=== PATIENT | male | born 1955 | race Caucasian/White ===

== ENCOUNTER 2021-04-30 21:04 | Observation (INO) ==
[2021-04-30] MEDS ORDERED: METOPROLOL TARTRATE 1 MG/ML VIAL IV STA (21:33)
[2021-04-30] MEDS ORDERED: NITROGLYCERIN 2% OINTMENT 30GM TUBE EXT STA (21:33)
[2021-04-30] MEDS ORDERED: ASPIRIN CHEW 324 MG PO STA (21:33)
[2021-04-30 21:51] LABS: Basophils # (auto) 0.07 K/uL (0-0.2); Basophils % (auto) 0.7 %; Eosinophils # (auto) 0.28 K/uL (0-0.5); Eosinophils % (auto) 2.7 %; Hematocrit (blood only) 50.8 % (42-52); Hemoglobin 17.3 g/dL (14.0-18.0); Immature Granulocytes # (auto) 0.02 K/uL (0.00-0.02); Immature Granulocytes % (auto) 0.2 %; Lymphocytes # (auto) 1.82 K/uL (1.2-3.4); Lymphocytes % (auto) 17.8 %; Mean Corpuscular Hemoglobin 33.5 pg (25-34); Mean Corpuscular Hgb Conc 34.1 g/dL (32-36); Mean Corpuscular Volume 98.4 fL (80-100); Mean Platelet Volume 10.1 fL (7.4-10.4); Monocytes # (auto) 1.19 K/uL (0.11-0.59); Monocytes % (auto) 11.7 %; Neutrophils # (auto) 6.82 K/uL (1.4-6.5); Neutrophils % (auto) 66.9 %; Platelet Count 235 K/uL (130-400); RDW Coefficient of Variation 14.1 % (11.5-14.5); RDW Standard Deviation 50.9 fL (36.4-46.3); Red Blood Count 5.16 M/uL (4.7-6.1)
--- NOTE | 2021-04-30 21:57 | Emergency Department Note ---
Impression & Plan Acute HI, Hypertension, Jaw pain, Elevated troponin ED Provider Note NAME: REE CARR AGE: 65 SEX: M : 1955 ARRIVES VIA: Walk-In INFORMANT: [Patient] ED PROVIDER(S): [Romain Dang MD] CHIEF COMPLAINT: Chest pain HISTORY OF PRESENT ILLNESS: The patient is a 65-year-old male presents to the ER with about 5 hours of jaw pain that is a 5/10. The pain started and stopped and then seemed to persist. His shoulders feel tight. He is not short of breath. No nausea or sweating. This all began as he was taking a drink. The patient states that he did golf within the last few days and had no difficulty. He has not any exertional chest pain or exertional jaw pain. Patient does smoke and has a family history of heart disease. The patient is visiting the area. He has no recollection of ever having an EKG before. The patient has been in baseline health. He has not had cough, cold or congestion. No fever. REVIEW OF SYSTEMS: See HPI for pertinent positives and negatives. A total of ten systems were reviewed and were otherwise negative. PMHx/PSHx: See Below SOCIAL HISTORY: See Below. PHYSICAL EXAM: GENERAL: Patient is in no acute distress. HEENT: No acute trauma, normocephalic atraumatic, mucous membranes moist, no nasal congestion, no scleral icterus. NECK: No stridor, no adenopathy, no meningismus, trachea is midline. LUNGS: Clear to auscultation bilaterally, no wheeze, no rhonchi, breath sounds equal. HEART: Without murmurs gallops or rubs, regular rate and rhythm. ABDOMEN: Soft, nontender, bowel sounds positive, no hernias, no peritonitis. EXTREMITIES: No cyanosis or edema, full range of motion of all the joints without pain or difficulty, no signs for acute trauma. NEUROLOGIC: Oriented x 3, no acute motor or sensory deficits, no focal weakness. SKIN: No rash, no jaundice, no diaphoresis. DIFFERENTIAL DIAGNOSIS: Cardiac ischemia, aortic dissection, pulmonary embolism, pneumothorax, pneumonia, pericarditis, myocarditis, esophageal rupture, GERD, cholecystitis, pancreatitis, musculoskeletal, as well as other pathologies. EMERGENCY DEPARTMENT COURSE/PROCEDURES: ECG: Indication was pain. The ECG shows a sinus rhythm with some PACs. The rate is 88. There is a right bundle branch block. There is upsloping of the initial portion of the T wave in the anterior and lateral leads. There is some very subtle ST elevation in the anterior leads. The QTc is 454. No old EKGs to use for comparison. Repeat EKG: Indication was chest pain. The ECG shows a normal sinus rhythm with a rate of 70. There is a right bundle branch block. The subtle ST elevation in the anterior leads has resolved. The upsloping T waves in the anterior lateral leads has resolved. QTc is 444. The ECG is improved compared to the earlier EKG. Continuous Cardiac Monitoring: An order was placed for continuous cardiac mo nitoring. The monitor shows a rate of 82 with normal sinus rhythm. Critical Care Note: I have personally spent 57 minutes of critical care time in the direct management of this patient. This includes bedside care, interpretation of diagnostic studies, and testing, discussion with consultants, patient, and family members, and other required patient management activities. This 57 minutes is in excess of all separately billable procedures. MEDICAL DECISION MAKING: There is no leukocytosis or concerning anemia. There is a normal platelet count. No coagulopathy. No significant electrolyte abnormality or kidney failure. No concerning liver enzyme elevation. No pancreatitis. Patient appeared to be in a euthyroid state. Covid test returned negative. Chest film did not show pneumonia or CHF. No mediastinal widening. ECG initially showed some findings concerning for the development of an HI, his EKG improved with aspirin, Lopressor and nitroglycerin paste. Cardiac enzyme testing does show an elevation to the troponin concerning for cardiac injury or strain. As noted above, the patient's initial EKG was a bit concerning although, it did not meet strict criteria for ST elevation HI. Patient was given oral aspirin, IV Lopressor and nitroglycerin paste. His pain improved but he still had some jaw discomfort. Repeat EKG showed improvement of his ST changes. I did speak with Dr. Ryan of cardiac intervention. With the patient's complaints, the ECG findings, the troponin elevation, it was felt prudent to call a heart alert. Patient was told the results of his findings and I did explain my concerns to him at length. Dr. Ryan did see the patient here in the ED. Patient will be transferred to the cardiac catheterization lab for potential cardiac intervention. Of note, I did order for IV morphine and IV Zofran as additional pain control. I did consult the on-call hospitalist. Past Med/Surg History Medical History ACS (acute coronary syndrome) HTN (hypertension) Surgical History (Updated 05/01/21 @ 01:47 by Sandy Horowitz DO) Total knee replacement status Social History Smoking Status: Current every day smoker Tobacco Type: Cigarettes Cigarettes Per Day: 14; Do You Dip or Chew Tobacco: No; Hx Alcohol Use: Yes Alcohol type: beer and hard liquor Hx Substance Use: No Preferred Language: Kyrgyz Communication Ability: Effective Team Driver Required: No Beliefs That Will Affect Care: None Current Living Situation: Spouse Other Information That Helps Us Care for You: No Feels Safe at Home: Yes Safety Concerns: Feels Safe At This Time Assistive Devices: Contacts Allergies Allergies Allergy/AdvReac Type Severity Reaction Status Date / Time Penicillins Allergy Intermediate Hives Verified 04/30/21 22:45 POLLEN Allergy Intermediate SNEEZING, Uncoded 04/30/21 22:45 CONGESTION Home Meds Home Medications Medication Instructions Recorded Confirmed ascorbic acid (vitamin C) 500 mg 500 mg PO DAILY 04/30/21 04/30/21 tablet (Vitamin C) aspirin 81 mg tablet,delayed 81 mg PO DAILY 04/30/21 04/30/21 release diphenhydramine HCl 25 mg capsule 0 mg PO DAILY 04/30/21 04/30/21 omeprazole 20 mg capsule,delayed 20 mg PO DAILY 04/30/21 04/30/21 release Results & Data (ED) Vital Signs Vital Signs - 24 hr 04/30/21 21:13 04/30/21 21:31 04/30/21 21:54 Temperature 36.1 C L Temperature Source Temporal Artery Scan Pulse Rate 98 H 77 82 Pulse Rate from SpO2 Sensor Respiratory Rate 18 Respiratory Effort / Characteristics Non-Labored Spontaneous Respiratory Depth Normal Blood Pressure 182/119 H 190/112 H 190/112 H Blood Pressure Mean 140 138 Pulse Oximetry 98 Oxygen Delivery Method Room Air Sepsis Recent Fever Within 48 Hours No Sepsis New/Unexplained Change in Mental Status No Sepsis Action Taken by Nursing No Action Required 04/30/21 21:55 04/30/21 22:16 04/30/21 22:31 Temperature Temperature Source Pulse Rate 73 77 75 Pulse Rate from SpO2 Sensor 73 78 75 Respiratory Rate Respiratory Effort / Characteristics Respiratory Depth Blood Pressure 159/93 H 138/91 154/91 H Blood Pressure Mean 115 106 112 Pulse Oximetry 98 96 96 Oxygen Delivery Method Sepsis Recent Fever Within 48 Hours Sepsis New/Unexplained Change in Mental Status Sepsis Action Taken by Nursing 04/30/21 22:45 04/30/21 23:02 04/30/21 23:21 Temperature Temperature Source Pulse Rate 75 77 Pulse Rate from SpO2 Sensor 76 78 Respiratory Rate Respiratory Effort / Characteristics Respiratory Depth Blood Pressure 169/92 H 136/60 Blood Pressure Mean 117 85 Pulse Oximetry 95 96 Oxygen Delivery Method Room Air Sepsis Recent Fever Within 48 Hours Sepsis New/Unexplained Change in Mental Status Sepsis Action Taken by Half-Way Medications Current Medication List: was personally reviewed by me Laboratory Data Attestation: I reviewed the patient's lab results. Result diagrams: 04/30/21 21:46 04/30/21 22:12 Lab Results 04/30/21 04/30/21 04/30/21 Range/Units 21:46 21:46 21:46 WBC 10.20 (4.8-10.8) K/uL RBC 5.16 (4.7-6.1) M/uL Hgb 17.3 (14.0-18.0) g/dL Hct 50.8 (42-52) % MCV 98.4 (80-100) fL MCH 33.5 (25-34) pg MCHC 34.1 (32-36) g/dL RDW Std Deviation 50.9 H (36.4-46.3) fL RDW Coeff of Katherine 14.1 (11.5-14.5) % Plt Count 235 (130-400) K/uL MPV 10.1 (7.4-10.4) fL Immature Gran % (Auto) 0.2 % Neut % (Auto) 66.9 % Lymph % (Auto) 17.8 % Stanley % (Auto) 11.7 % Eos % (Auto) 2.7 % Baso % (Auto) 0.7 % Neut # (Auto) 6.82 H (1.4-6.5) K/uL Lymph # (Auto) 1.82 (1.2-3.4) K/uL Stanley # (Auto) 1.19 H (0.11-0.59) K/uL Eos # (Auto) 0.28 (0-0.5) K/uL Baso # (Auto) 0.07 (0-0.2) K/uL Immature Gran # (Auto) 0.02 (0.00-0.02) K/uL PT Cancelled INR Cancelled APTT Cancelled PTT Ratio Cancelled Activ Coag Time Kaolin (94-140) SECONDS Sodium 135 L (136-145) mmol/L Potassium (3.5-5.1) mmol/L Chloride 106 (98-107) mmol/L Carbon Dioxide 24 (21-32) mmol/L Anion Gap 6.0 (3-11) BUN 15 (7-18) mg/dl Creatinine 1.36 (0.6-1.4) mg/dl Est Cr Clr Drug Dosing 83.2 ml/min Est GFR ( Amer) 63.3 ml/min Est GFR (Non-Af Amer) 54.6 ml/min BUN/Creatinine Ratio 11.1 (10-20) Glucose 112 H (70-99) mg/dl Calcium 8.8 (8.5-10.1) mg/dl Magnesium (1.8-2.4) mg/dl Total Bilirubin 0.5 (0.2-1) mg/dl AST (15-37) U/L ALT 38 (12-78) U/L Alkaline Phosphatase 110 (45-117) U/L Troponin I 0.512 H* (0-0.045) ng/ml Total Protein 8.0 (6.4-8.2) gm/dl Albumin 3.6 (3.4-5.0) gm/dl Globulin 4.4 H (2.5-4.0) gm/dl Albumin/Globulin Ratio 0.8 L (0.9-2) Lipase 140 (73-393) U/L TSH 2.160 (0.300-4.500) uIu/ml Specimen Hemolysis COVID-19 Eval Order SARS-CoV-2 (PCR) (Negative) 04/30/21 04/30/21 04/30/21 Range/Units 22:12 22:12 23:52 WBC (4.8-10.8) K/uL RBC (4.7-6.1) M/uL Hgb (14.0-18.0) g/dL Hct (42-52) % MCV (80-100) fL MCH (25-34) pg MCHC (32-36) g/dL RDW Std Deviation (36.4-46.3) fL RDW Coeff of Katherine (11.5-14.5) % Plt Count (130-400) K/uL MPV (7.4-10.4) fL Immature Gran % (Auto) % Neut % (Auto) % Lymph % (Auto) % Stanley % (Auto) % Eos % (Auto) % Baso % (Auto) % Neut # (Auto) (1.4-6.5) K/uL Lymph # (Auto) (1.2-3.4) K/uL Stanley # (Auto) (0.11-0.59) K/uL Eos # (Auto) (0-0.5) K/uL Baso # (Auto) (0-0.2) K/uL Immature Gran # (Auto) (0.00-0.02) K/uL PT 9.7 INR 1.0 APTT 27.3 PTT Ratio 1.0 Activ Coag Time Kaolin 274 H (94-140) SECONDS Sodium (136-145) mmol/L Potassium 4.1 (3.5-5.1) mmol/L Chloride (98-107) mmol/L Carbon Dioxide (21-32) mmol/L Anion Gap (3-11) BUN (7-18) mg/dl Creatinine (0.6-1.4) mg/dl Est Cr Clr Drug Dosing ml/min Est GFR ( Amer) ml/min Est GFR (Non-Af Amer) ml/min BUN/Creatinine Ratio (10-20) Glucose (70-99) mg/dl Calcium (8.5-10.1) mg/dl Magnesium 1.8 (1.8-2.4) mg/dl Total Bilirubin (0.2-1) mg/dl AST 30 (15-37) U/L ALT (12-78) U/L Alkaline Phosphatase (45-117) U/L Troponin I (0-0.045) ng/ml Total Protein (6.4-8.2) gm/dl Albumin (3.4-5.0) gm/dl Globulin (2.5-4.0) gm/dl Albumin/Globulin Ratio (0.9-2) Lipase (73-393) U/L TSH (0.300-4.500) uIu/ml Specimen Hemolysis COVID-19 Eval Order SARS-CoV-2 (PCR) (Negative) 04/30/21 04/30/21 Range/Units Unknown Unknown WBC (4.8-10.8) K/uL RBC (4.7-6.1) M/uL Hgb (14.0-18.0) g/dL Hct (42-52) % MCV (80-100) fL MCH (25-34) pg MCHC (32-36) g/dL RDW Std Deviation (36.4-46.3) fL RDW Coeff of Katherine (11.5-14.5) % Plt Count (130-400) K/uL MPV (7.4-10.4) fL Immature Gran % (Auto) % Neut % (Auto) % Lymph % (Auto) % Stanley % (Auto) % Eos % (Auto) % Baso % (Auto) % Neut # (Auto) (1.4-6.5) K/uL Lymph # (Auto) (1.2-3.4) K/uL Stanley # (Auto) (0.11-0.59) K/uL Eos # (Auto) (0-0.5) K/uL Baso # (Auto) (0-0.2) K/uL Immature Gran # (Auto) (0.00-0.02) K/uL PT INR APTT PTT Ratio Activ Coag Time Kaolin (94-140) SECONDS Sodium (136-145) mmol/L Potassium (3.5-5.1) mmol/L Chloride (98-107) mmol/L Carbon Dioxide (21-32) mmol/L Anion Gap (3-11) BUN (7-18) mg/dl Creatinine (0.6-1.4) mg/dl Est Cr Clr Drug Dosing ml/min Est GFR ( Amer) ml/min Est GFR (Non-Af Amer) ml/min BUN/Creatinine Ratio (10-20) Glucose (70-99) mg/dl Calcium (8.5-10.1) mg/dl Magnesium (1.8-2.4) mg/dl Total Bilirubin (0.2-1) mg/dl AST (15-37) U/L ALT (12-78) U/L Alkaline Phosphatase (45-117) U/L Troponin I (0-0.045) ng/ml Total Protein (6.4-8.2) gm/dl Albumin (3.4-5.0) gm/dl Globulin (2.5-4.0) gm/dl Albumin/Globulin Ratio (0.9-2) Lipase (73-393) U/L TSH (0.300-4.500) uIu/ml Specimen Hemolysis COVID-19 Eval Order Covid19 at [facility] SARS-CoV-2 (PCR) NEGATIVE (Negative) Administered Medications Sodium Chloride (Nss 1000ml) 1,000 mls @ 100 mls/hr IV .Q10H [facility] Stop: 05/01/21 07:59 Last Admin: 05/01/21 01:07 Dose: 100 mls/hr Documented by: [id number] Discontinued Medications Aspirin (Aspirin Chew 324 Mg) 324 mg PO NOW STA Stop: 04/30/21 21:34 Last Admin: 04/30/21 21:50 Dose: 324 mg Documented by: [id number] Fentanyl Citrate (Fentanyl Citrate 100 Mcg/2 Ml Vial) Confirm Administered Dose 100 mcg .ROUTE .STK-MED ONE Stop: 04/30/21 23:01 Last Admin: 05/01/21 00:31 Dose: 100 mcg Documented by: [id number] Fentanyl Citrate (Fentanyl Citrate 100 Mcg/2 Ml Vial) Confirm Administered Dose 100 mcg .ROUTE .STK-MED ONE Stop: 04/30/21 23:48 Last Admin: 05/01/21 00:32 Dose: 25 mcg Documented by: [id number] Heparin Sodium (Porcine) (Heparin (Porcine) 1000 Unit/Ml 10 Ml (Skirt Trimmer Use Only)) Confirm Administered Dose 10,000 units .ROUTE .STK-MED ONE Stop: 04/30/21 23:01 Last Admin: 05/01/21 00:31 Dose: 10,000 units Documented by: [id number] Heparin Sodium (Porcine) (Heparin (Porcine) 1000 Unit/Ml 10 Ml (Skirt Trimmer Use Only)) Confirm Administered Dose 10,000 units .ROUTE .STK-MED ONE Stop: 04/30/21 23:39 Last Admin: 05/01/21 00:32 Dose: Not Given Documented by: [id number] Heparin Sodium/Sodium Chloride (Heparin In Nss Infusion 1000 Unit/500 Ml (2 U/Ml) Bag) Confirm Administered Dose 3,000 units IV .[facility] ONE Stop: 04/30/21 23:01 Last Admin: 05/01/21 00:31 Dose: 3,000 units Documented by: [id number] Ioversol (Optiray 320 125ml) 120 ml IV ONCE ONE Stop: 04/30/21 22:38 Last Admin: 04/30/21 22:38 Dose: 120 ml Documented by: [id number] Metoprolol Tartrate (Metoprolol Tartrate 1 Mg/Ml Vial) 5 mg IV NOW STA Stop: 04/30/21 21:34 Last Admin: 04/30/21 21:54 Dose: 5 mg Documented by: [id number] Midazolam HCl (Midazolam Hcl 1 Mg/Ml 2ml Vial) Confirm Administered Dose 2 mg .ROUTE .[facility] ONE Stop: 04/30/21 23:01 Last Admin: 05/01/21 00:31 Dose: 2 mg Documented by: [id number] Midazolam HCl (Midazolam Hcl 1 Mg/Ml 2ml Vial) Confirm Administered Dose 2 mg .ROUTE .[facility] ONE Stop: 04/30/21 23:44 Last Admin: 05/01/21 00:32 Dose: 2 mg Documented by: [id number] Midazolam HCl (Midazolam Hcl 1 Mg/Ml 2ml Vial) Confirm Administered Dose 2 mg .ROUTE .[facility] ONE Stop: 05/01/21 00:02 Last Admin: 05/01/21 00:32 Dose: Not Given Documented by: [id number] Morphine Sulfate (Morphine Sulfate 4 Mg/Ml 1 Ml Carp\Vial) 4 mg IV NOW STA Stop: 04/30/21 22:04 Last Admin: 04/30/21 22:06 Dose: 4 mg Documented by: [id number] Nicardipine HCl (Nicardipine Hcl Inj 2.5 Mg/Ml 10 Ml Amp) Confirm Administered Dose 25 mg .ROUTE .[facility] ONE Stop: 04/30/21 23:01 Last Admin: 05/01/21 00:32 Dose: 25 mg Documented by: [id number] Nitroglycerin (Nitroglycerin 2% Ointment 30gm Tube) 2 inch EXT NOW STA Stop: 04/30/21 21:34 Last Admin: 04/30/21 21:49 Dose: 2 inch Documented by: [id number] Nitroglycerin/Dextrose (Nitroglycerin/D5w 100mcg/Ml 20ml Syr) Confirm Administered Dose 2,000 mcg .ROUTE .[facility] ONE Stop: 04/30/21 23:01 Last Admin: 05/01/21 00:32 Dose: 2,000 mcg Documented by: [id number] Ondansetron HCl (Ondansetron Inj 2 Mg/Ml 2 Ml Vial) 4 mg IV NOW STA Stop: 04/30/21 22:04 Last Admin: 04/30/21 22:07 Dose: 4 mg Documented by: [id number] Ticagrelor (Ticagrelor 90 Mg Tab) Confirm Administered Dose 180 mg PO .[employer] ONE Stop: 05/01/21 00:18 Last Admin: 05/01/21 00:32 Dose: 180 mg Documented by: [id number] Imaging Data Attestation: I personally reviewed and interpreted this imaging study as follows: My Impression: Chest x-ray: There is no mediastinal widening, pneumonia or pneumothorax per my review. The lungs appear clear. Discharge Plan Visit Data Chief Complaint: Cardiac Assessment Stated Complaint: CHEST TIGHTNESS, JAW PAIN ED Provider: Romain Dang Discharge Problem: Acute HI, Hypertension, Jaw pain, Elevated troponin Patient Disposition: Admitted As Inpatient Condition: Fair Discharge Instructions Interventions: ED Discharge Assessment Last Done: 04/30/21 23:21
[2021-04-30] MEDS ORDERED: ONDANSETRON INJ 2 MG/ML 2 ML VIAL IV STA (22:03)
[2021-04-30] MEDS ORDERED: MoRPHine SULFATE 4 MG/ML 1 ML CARP\\VIAL IV STA (22:03)
[2021-04-30 22:20] LABS: Albumin Level 3.6 gm/dl (3.4-5.0); BUN Creatinine Ratio 11.1 (10-20); Calcium 8.8 mg/dl (8.5-10.1); Creatinine Clr Calc Pharmacy 83.2 ml/min; Est GFR (African American) 63.3 ml/min; Est GFR (Non-African American) 54.6 ml/min
[2021-04-30 22:26] LABS: Albumin Globulin Ratio 0.8 (0.9-2); Bilirubin,Total 0.5 mg/dl (0.2-1); Globulin 4.4 gm/dl (2.5-4.0); Thyroid Stimulating Hormone 2.16 uIu/ml (0.300-4.500); Troponin I 0.512 ng/ml (0-0.045)
[2021-04-30] MEDS ORDERED: OPTIRAY 320 125ml IV ONE (22:37)
[2021-04-30 22:41] LABS: Partial Thromboplastin Time 27.3 Seconds (21.0-31.0); Prothrombin Time 9.7 Seconds (9.0-12.0)
[2021-04-30 22:56] LABS: Potassium 4.1 mmol/L (3.5-5.1)
[2021-04-30] MEDS ORDERED: NITROGLYCERIN/D5W 100MCG/ML 20ML SYR ONE (23:00)
[2021-04-30] MEDS ORDERED: fentaNYL citrate 100 MCG/2 ML VIAL ONE ×2 (23:00→23:47)
[2021-04-30] MEDS ORDERED: MIDAZOLAM HCL 1 MG/ML 2ML VIAL ONE ×2 (23:00→23:43)
[2021-04-30] MEDS ORDERED: HEPARIN (PORCINE) 1000 UNIT/ML 10 ML (CATH LAB USE ONLY) ONE ×2 (23:00→23:38)
[2021-04-30] MEDS ORDERED: niCARdipine HCL INJ 2.5 MG/ML 10 ML AMP ONE (23:00)
[2021-04-30 23:05] LABS: Magnesium 1.8 mg/dl (1.8-2.4)
--- NOTE | 2021-04-30 23:19 | Pre Anesthesia Assessment ---
Date of Service April 30, 2021 Pre Sedation Assessment Vital Signs Temp Pulse Resp BP Pulse Ox 04/30/21 23:02 77 136/60 96 04/30/21 22:45 75 169/92 H 95 04/30/21 22:31 75 154/91 H 96 04/30/21 22:16 77 138/91 96 04/30/21 21:55 73 159/93 H 98 04/30/21 21:54 82 190/112 H 04/30/21 21:31 77 190/112 H 04/30/21 21:13 97.0 F L 98 H 18 182/119 H 98 Cardiovascular RRR, no murmur, no edema Respiratory normal respiratory effort, lungs clear to auscultation Pre-Sedation Airway Assessment Smoking Status: Current every day smoker Hx Sleep Apnea: No Hx Difficult Intubation: No Short, Thick Neck: No Thyromental Distance: > or= 3.5 Finger Breadths Oral Cavity: + WNL Mallampati Class: III ASA: ASA4 Procedure Planning Contraindications for Sedation: none Current Medications Reviewed: Yes Notes The planned sedation has been discussed with the patient. Informed Consent was obtained. I have identified the patient, determined the appropriateness of sedation and have assessed the patient immediately prior to the procedure. All medicine(s) and interventions are by my order.
--- NOTE | 2021-04-30 23:25 | Cardiology Consultation ---
Date of Consultation April 30, 2021 Assessment & Plan (1) ACS (acute coronary syndrome): Presentation consistent with high risk NSTEMI and recommend proceeding with urgent cardiac catheterization and possible primary PCI. No apparent contraindications to procedure. Discussed risks, benefits, alternatives of procedure with patient and they are willing to proceed. Further recommendations pending findings of coronary angiography. History of Present Illness History of Present Illness 65-year-old man here with acute chest pain and ECG concerning for high risk ACS. Patient seen urgently in the ED after heart alert activated due to elevated troponin, dynamic ST changes and persistent chest/jaw pain. No prior cardiac history. Cardiac risk factors include hypertension, obesity, ongoing tobacco abuse. Other medical issues include GERD. Patient is visiting area from [place] for an electrical conference. Has had stuttering chest/jaw pain since around 4 PM this afternoon. Around 730 after dinner pain became more severe and persisted. Denies similar symptoms in the past. Hypertensive on arrival to the 190s. Given metoprolol, Nitropaste, morphine and aspirin. Pain down to 3-4 out of 10. ECG showed sinus rhythm with right bundle branch block and anterolateral subtle ST elevations <[address] changes improved following initial medical therapy but chest pain persisted. Allergies Allergy/AdvReac Type Severity Reaction Status Date / Time Penicillins Allergy Intermediate Hives Verified 04/30/21 22:45 POLLEN Allergy Intermediate SNEEZING, Uncoded 04/30/21 22:45 CONGESTION Home Medications Medication Instructions Recorded Confirmed Type ascorbic acid (vitamin C) 500 mg 500 mg PO DAILY 04/30/21 04/30/21 History tablet (Vitamin C) aspirin 81 mg tablet,delayed 81 mg PO DAILY 04/30/21 04/30/21 History release diphenhydramine HCl 25 mg capsule 0 mg PO DAILY 04/30/21 04/30/21 History omeprazole 20 mg capsule,delayed 20 mg PO DAILY 04/30/21 04/30/21 History release Patient History Social History Smoking Status: Current every day smoker Tobacco Type: Cigarettes Feels Safe at Home: Yes Review of Systems Review of Systems: All systems reviewed & are unremarkable except as noted in HPI & below Physical Exam Physical Exam: General: Comfortable HEENT: Sclerae anicteric, Mask in place Lungs: Clear to auscultation bilaterally, no crackles or wheezes Cardiac: Regular rate and rhythm, no murmurs. Vascular: 2+ radial, DP pulses. No bruits Abdomen: Soft, nontender Extremities: Well perfused, no peripheral edema Neuro: Nonfocal Psych: Alert orient x3, normal affect and mood Results & Data ([facility]) Vital Signs (Past 12 Hours) Vital Signs Temp Pulse Resp BP Pulse Ox 04/30/21 23:02 77 136/60 96 04/30/21 22:45 75 169/92 H 95 04/30/21 22:31 75 154/91 H 96 04/30/21 22:16 77 138/91 96 04/30/21 21:55 73 159/93 H 98 04/30/21 21:54 82 190/112 H 04/30/21 21:31 77 190/112 H 04/30/21 21:13 97.0 F L 98 H 18 182/119 H 98 PG Care Time/CCT Total # of Minutes Spent Total Time Spent with Patient: Total time spent is greater than 50% in coordina tion of care (as documented) at patient's floor/unit and/or counseling patient: Coding Level of Care Code 86124 Inpt Consult Level 5 Diagnoses ACS (acute coronary syndrome) I24.9
[2021-05-01] MEDS ORDERED: MIDAZOLAM HCL 1 MG/ML 2ML VIAL ONE ×2 (00:01→10:53)
[2021-05-01] MEDS ORDERED: TICAGRELOR 90 MG TAB PO ONE (00:17)
[2021-05-01] MEDS ORDERED: ACETAMINOPHEN 325 MG TAB PO PRN (00:23)
--- NOTE | 2021-05-01 00:23 | Post Anesthesia Assessment ---
Date of Service May 01, 2021 Post Sedation Assessment Vital Signs Temp Pulse Resp BP Pulse Ox 04/30/21 23:02 77 136/60 96 04/30/21 22:45 75 169/92 H 95 04/30/21 22:31 75 154/91 H 96 04/30/21 22:16 77 138/91 96 04/30/21 21:55 73 159/93 H 98 04/30/21 21:54 82 190/112 H 04/30/21 21:31 77 190/112 H 04/30/21 21:13 97.0 F L 98 H 18 182/119 H 98 Recovery Score Activity: Moves 4 extremities Respiration: Deep Breath/Cough Circulation: +/-20% PreAnes Value Consciousness: Fully Awake Oxygen Saturation: O2 needed for >90% Discharge Sedation Level of Care: Fast Track Phase II Post Sedation Plan On clinical assessment, the patient appears to have tolerated the sedation without complications. Patient is recovering as anticipated. Patient will continue to be monitored by nursing and may be discharged when sedation discharge criteria are met per below protocol. Upon Completions of procedure up to 15 minutes continue every 5 minute vital signs and the P.A.R. score; then discharge to a Phase I or Fast Track to Phase II per the following guidelines: * Discharge Patient to appropriate Phase II area if PAR is 8 or greater or return to pre- procedure baseline. The post - procedure orders will be as directed. * If PAR score is less than 8 or not return to pre-procedure baseline then patient will follow Phase I monitoring till PAR is reached for Phase II. The Phase I may be done in procedure room or may call to secure a Phase I area. * If naloxone or flumazenil are used for reversal, hold in Phase I for continued monitoring from when last reversal dose was given for a minimum of 60 minutes or longer pending the nurse and/or physician discretion of patient condition before discharge to Phase II. Please call the Sedation Physician to re-evaluate and complete post-note for discharge to Phase II area. Do NOT discharge from procedure sedation or Phase 1 until post- sedation evaluation note is complete by procedure /sedation MD Sedation Discharge Instructions to be given to the patient at discharge to home.
[2021-05-01] MEDS ORDERED: ICU PROTOCOL FOR HYPERGLYCEMIA PRN (00:28)
[2021-05-01] MEDS ORDERED: SODIUM CHLORIDE 0.9% 1000ML 1,000 ML IV SCH ×2 (00:30→12:30)
--- NOTE | 2021-05-01 00:51 | Cardiac Catheterization ---
[facility] Data: Second Cutter Cardiac Status Clinical evaluation leading to the procedure CAD Presenation: STEMI Anginal Classification: CCS IV Heart Failure: No Cardiogenic Shock within 24 Hours: No Cardiac Arrest within 24 Hours: No Imaging Studies Past 6 Months: No Stress Studies Past 6 Months: No Diagnostic Physicians Name: Lucio Ryan MD Status: Elective Closure Device Percutaneous Entry Location: Radial Closure Device: Radial Band Recommendations: PCI without planned CABG PCI Indication: Immediate PCI for STEMI Lesion Segment Name: Mid LAD Culprit Artery: Yes Stenosis Prior to Rx (%): 100 Chronic Total Occlusion: No IVUS: No FFR: No Pre-Procedure ANAHI Flow: 0 Previously Treated Lesion: No Lesion Complexity: Non-High/Non-C Lesion Length (mm): 30 Thrombus Present: Yes Bifurcation Lesion: No Guidewire Across Lesion: Stenosis Post-Procedure (%): 0 Post-Procedure ANAHI Flow: 3 Devices(s) Deployed: Yes Yes Intraprocedure Events Significant Disection: No Perforation: No Cardiac Cath Procedure Full Procedure Date May 01, 2021 Pre-Procedure Diagnosis Pre-Procedure Diagnosis: Non STEMI AUC Score AUC Score: 8 Post-Procedure Diagnosis Post-Procedure Diagnosis: Severe CAD, Successful PCI and Normal Intracardiac Pressures Procedure(s) Performed Procedure(s) Performed: Coronary Angiography, Left Heart Cath, Drug Eluting Stent and IVUS Manager Operating Lucio Ryan MD [employer]obile [employer] Information Clerk(s) Lux Estimated Blood Loss Estimated Blood Loss: 15 Medication(s) Medication(s): Fentanyl, Heparin, Lidocaine 1%, Nicardipine, Nitroglycerin and Versed Medication(s): Ticagrelor Summary of Findings Indication: STEMI/Heart Alert Access: 6 Fr right radial artery Catheters: [place], EBU 3.5 guide Findings: LM -normal caliber, no significant disease LAD -medium caliber, diffuse mid segment disease before 100% acute mid occlusion. Circumflex -medium caliber, no significant disease. Gives off 2 small OM's. Medium left PLB without disease. RCA -dominant, large caliber, focal 80 to 90% mid stenosis (no change with vasodilators), distal luminal irregularities. Large PDA, PLB without significant disease. LVEDP -16 -- PCI -- Antithrombotic therapy: Heparin, ticagrelor Procedure: Left main cannulated with EBU 3.5 guide Upholstery Department Supervisor 50 wire passed across lesion into distal vessel Mid LAD lesion predilated with 2.5 compliant balloon Second sports management intern 50 wire used to probe for possible occluded diagonal coming from mid LAD but no clear diagonal takeoff. [place] IVUS catheter placed into distal LAD. Pullback revealed diffuse moderate to severe disease with thrombus throughout mid segment. Minimal disease in proximal LAD, left main. Dilated mid LAD lesion stented with 3.0 x 38 mm [place] drug-eluting stent Stent post-dilated with 4.0 noncompliant balloon IC vasodilators administered for spasm Post procedure ANAHI 3 flow, stent well expanded with minimal residual stenosis and no apparent cardiac complications. Arterial Closure: TR band Summary: 1. Acute 100% mid LAD occlusion 2. Severe non-culprit vessel coronary artery disease -Focal 80 to 90% mid RCA 3. Normal intracardiac filling pressure 4. Successful PCI of mid LAD with single drug-eluting stent (3.0 x 38 mm [place]; postdilated with 4.0 NC). Recommendations: Admit to ICU for continued monitoring Loaded with ticagrelor 180 mg in Second Cutter Continue dual-antiplatelet therapy for at least 1 year. Trend troponins until peak, Check Echo Uptitrate beta-janice/CHEO as BP allows High-dose statin Consult cardiac Rehab Plan for staged PCI of RCA later in hospitalization. Hemodynamics Rest Ao:: 116/80/97 Final Ao: 107/69/86 LV: 104/16 Recommendations Recommendations: PCI without planned CABG Specimens Specimens: None Radiation Exposure (mGy) 3372 Contrast (mls) 180 Fluids (cc crystalloids) Fluids (cc crystalloids): 48 Drains Drains: None Anesthesia Moderate 2329-00 19 Procedural Complication(s) None Disposition ICU I attest to the content of the Intraoperative Record and any orders documented therein. Any exceptions are noted below. [facility] Card Cath Procedure Codes Cardiac Catheterization Procedure 1: Cardiovascular Cath Procedures: 09399 Coronaries and LHC (+/-LV) Therapeutic Services & Ancillary Proc Procedure 1: Cardiovascular Tx and Anc Procedures: 96855 IV Ultrasound (Coronary or Graft) Moderate Sedation Procedure 1: Sedation/Anesthesia: 05166 Mod Sedation by the same physician;Init15 Min Child Age 5 & Up Procedure 2: Sedation/Anesthesia: 62799 Mod Sedation by the same physician; Ea [id number] Minutes Stenting Procedure 1: Cardiovascular Stent Procedures: 91909 Perc transluminal revascularization of acute sub/total occl, aMI PG Care Time/CCT Total # of Minutes Spent Total Time Spent with Patient: Total time spent is greater than 50% in coordination of care (as documented) at patient's floor/unit and/or counseling patient:
--- NOTE | 2021-05-01 00:54 | Critical Care Consultation ---
Date of Consultation May 01, 2021 Assessment & Plan (1) ACS (acute coronary syndrome): Impression: 65-year-old male presents to the ICU following STEMI, now post cardiac cath where he received PCI to LAD 400% occlusion. Plan for patient to undergo repeat cardiac cath this morning for PCI of the RCA for 80 to 90% stenosis. Neuro - CAM ICU: Negative Cardiac - Acute coronary syndromes/p successful PCI to LAD with KATELYN x1 for 100% occlusion. Plan for patient to undergo repeat cardiac cath this morning for 8090% stenosis of the RCA. -Admitted to ICU for further monitoring -ASA, Brilinta, Lipitor, MTP, lisinopril -Trend troponins for peak -Continuous monitor on telemetry -Daily EKG -Follow-up echo in a.m. Respiratory - Tobacco abusereports 1 pack/day cigarette use for 50 years, no known history of COPD -Encouraged cessation of cigarette use Currently maintaining oxygen saturations on room air, no respiratory status, lungs clear to auscultation. Monitor GI - N.p.o. pending cardiac cath this morning RENAL/LYTES - Creatinine 1.36 Monitor routine BMPs replete electrolytes as indicated - Strict I's and O's ENDO - No history of diabetes or thyroid disease ICU hyperglycemic protocol HEME - H&H stable, monitor routine CBC ID - No indication for infectious process at this time LINES/IV ACCESS - Peripheral IVs DVT PROPHYLAXIS - SCDs Thank you for allowing us to participate in the care of this patient. Please refer to my attending physician's documentation for any further recommendations. (2) HTN (hypertension): (3) Tobacco abuse: History of Present Illness Attending Physician: Lucio Ryan MD History of Present Illness Mr. Dodson is a pleasant 65-year-old male with history of obesity, HTN, and ongoing tobacco abuse with reported 1 pack/day for the past 50 years. Patient reported having chest pain with radiation to the jaw that started around 4 PM this afternoon and persisted and became more severe at dinner around 730 this evening. He presented to the emergency department was found to be hypertensive. He did receive MTP, Nitropaste, morphine, and aspirin after ECG showed subtle anteriolateral ST elevations and slightly elevated troponin 0.5. ST changes were noted to improve after receiving medications but he did have persistent chest pain and heart alert was initiated. Patient was taken for cardiac cath where he was found to have 100% occlusion for the LAD and focal 80 to 90% mid RCA stenosis. He received successful PCI of the mid LAD with a single drug- eluting stent. Plan for patient to be admitted to ICU and is to undergo additional cardiac cath for stenting of RCA in the a.m. On arrival to the ICU the patient is alert and oriented and appears comfortable at rest. He denies current chest pain and reports very mild jaw tightness which is much improved from earlier. Patient states that prior to this event he was in his normal state of health without any recent illness. He denies similar symptoms prior to today. He denies headache, dizziness, syncope, fevers, sore throat, cough, shortness of breath, palpitations, abdominal pain, nausea vomiting or diarrhea, swelling in hands or feet, or gait disturbances. Patient to remain in ICU for now for further monitoring. Allergies Allergy/AdvReac Type Severity Reaction Status Date / Time Penicillins Allergy Intermediate Hives Verified 04/30/21 22:45 POLLEN Allergy Intermediate SNEEZING, Uncoded 04/30/21 22:45 CONGESTION Home Medications Medication Instructions Recorded Confirmed Type ascorbic acid (vitamin C) 500 mg 500 mg PO DAILY 04/30/21 04/30/21 History tablet (Vitamin C) aspirin 81 mg tablet,delayed 81 mg PO DAILY 04/30/21 04/30/21 History release diphenhydramine HCl 25 mg capsule 0 mg PO DAILY 04/30/21 04/30/21 History omeprazole 20 mg capsule,delayed 20 mg PO DAILY 04/30/21 04/30/21 History release Patient History Social History Smoking Status: Current every day smoker Tobacco Type: Cigarettes Feels Safe at Home: Yes Review of Systems Constitutional: as per Subjective / HPI Physical Exam Constitutional: cooperative and comfortable Eyes: PERRL, conjunctivae normal, anicteric sclerae ENMT: external ear and nose normal, oropharynx normal Neck: trachea midline, no thyromegaly Respiratory: normal respiratory effort, lungs clear to auscultation Cardiovascular: RRR, no murmur, no edema Heart Sounds: normal S1 and normal S2 Extremities: normal capillary refill; no edema Gastrointestinal (Abdomen): normal bowel sounds, soft, nontender, no hepatosplenomegaly Musculoskeletal: no cyanosis or clubbing, extremities motor strength 5/5 Neurologic: PERRL, EOMI, accommodation nl, no face palsy, no dysarthria Psychiatric: A+Ox3, euthymic affect Results & Data Results & Data ([facility]) Vital Signs (Past 12 Hours) Vital Signs Temp Pulse Resp BP Pulse Ox 04/30/21 23:02 77 136/60 96 04/30/21 22:45 75 169/92 H 95 04/30/21 22:31 75 154/91 H 96 04/30/21 22:16 77 138/91 96 04/30/21 21:55 73 159/93 H 98 04/30/21 21:54 82 190/112 H 04/30/21 21:31 77 190/112 H 04/30/21 21:13 36.1 C L 98 H 18 182/119 H 98 Coding Level of Care Code 92373 Inpt Consult Level 3 Diagnoses ACS (acute coronary syndrome) I24.9 HTN (hypertension) I10 Tobacco abuse Z72.0
--- NOTE | 2021-05-01 01:04 | History & Physical Report ---
Date of Service May 01, 2021 Assessment & Plan (1) Acute [place]: Plan: 65yo C male presenting with acute anterior STEMI s/p cardiac catheterization with placement of KATELYN x 1 to mid-LAD. Patient doing well. He is to return to the laborer beam house tomorrow for stenting of RCA lesion -Admit to MICU -Keep NPO after midnight for lab[facility] house in AM -Trend troponin q 8 hour x 3 -Check Lipid panel and HgbA1C for risk assessment -Continue ASA 81mg po daily -Continue Atorvastatin 80mg po daily -Continue Lisinopril 5mg po daily -Continue Metoprolol tartrate 25mg po BID for now -Continue Brilinta 90mg po BID (2) Tobacco abuse: Plan: Patient reports smoking 3/4 ppd -Smoking cessation counseling Admission and Anticipated Discharge Date Admission Date: May 01, 2021 History of Present Illness Chief Complaint: jaw pain Primary Care Provider: James Silva Aj Dodson is a 65yo male presenting with chest pain and jaw tightness that began around 16:00. Pain worsened throughout the day which prompted patient to come to the ER. EKG with RBBB and ST changes/mild elevation present in anterior leads. His troponin was positive at 0.512. Code Heart was called and the patient was taken for cardiac catheterization. Procedure was well tolerated. He was found to have 100% occlusion of the mid-LAD as well as 80--90% occlusion of the mid RCA. A single KATELYN was placed to mid-LAD culprit lesion. Patient was transferred to the MICU for ongoing care. Presently with no complaints. Still with mild tightness in his jaw/chin area. No additional complaints at this time. Allergies Allergy/AdvReac Type Severity Reaction Status Date / Time Penicillins Allergy Intermediate Hives Verified 04/30/21 22:45 POLLEN Allergy Intermediate SNEEZING, Uncoded 04/30/21 22:45 CONGESTION Home Medications Medication Instructions Recorded Confirmed Type ascorbic acid (vitamin C) 500 mg 500 mg PO DAILY 04/30/21 04/30/21 History tablet (Vitamin C) aspirin 81 mg tablet,delayed 81 mg PO DAILY 04/30/21 04/30/21 History release diphenhydramine HCl 25 mg capsule 0 mg PO DAILY 04/30/21 04/30/21 History omeprazole 20 mg capsule,delayed 20 mg PO DAILY 04/30/21 04/30/21 History release Past Med/Surg History Medical History ACS (acute coronary syndrome) HTN (hypertension) Surgical History (Updated 05/01/21 @ 01:47 by Sandy Horowitz DO) Total knee replacement status Social History Smoking Status: Current every day smoker Tobacco Type: Cigarettes Cigarettes Per Day: 14; Do You Dip or Chew Tobacco: No; Hx Alcohol Use: Yes Alcohol type: beer and hard liquor Hx Substance Use: No Preferred Language: Sinhala Communication Ability: Effective Tractor Drill Operator Required: No Beliefs That Will Affect Care: None Current Living Situation: Spouse Other Information That Helps Us Care for You: No Feels Safe at Home: Yes Safety Concerns: Feels Safe At This Time Assistive Devices: Contacts Review of Systems Review of Systems: All systems reviewed & are unremarkable except as noted in HPI & below Physical Exam Physical Exam: General: patient resting comfortably, NAD, non-toxic in appearance, AA&O x 4 Skin: warm, dry, intact, no rashes or lesions HEENT: NC/AT, PERRL, EOMI, anicteric sclera, conjunctiva without injection, external ear normal to inspection and nontender, nares patent, moist mucus membranes, dentition intact, no oropharyngeal lesions, neck supple, trachea midline, no LAD, no thyromegaly, no JVD Heart: +S1/S2, regular, no m/r/g Lungs: equal air entry bilaterally, no rales/rhonchi, scattered end expiratory wheezing Abd: +BS, soft, NT/ND, no masses/organomegaly/ascites Ext: warm, 2+ pulses in UE/LE bilaterally, no clubbing/cyanosis or edema, left radial occlusion band Neuro: nonfocal, patient AA&O x 4, speech intact, no facial droop, moving all extremities on command with equal strength 5/5 Results & Data Results & Data ([facility]) Vital Signs (Past 12 Hours) Vital Signs Temp Pulse Resp BP Pulse Ox 04/30/21 23:02 77 136/60 96 04/30/21 22:45 75 169/92 H 95 04/30/21 22:31 75 154/91 H 96 04/30/21 22:16 77 138/91 96 04/30/21 21:55 73 159/93 H 98 04/30/21 21:54 82 190/112 H 04/30/21 21:31 77 190/112 H 04/30/21 21:13 36.1 C L 98 H 18 182/119 H 98 Laboratory Results Laboratory Results WBC 10.20 K/uL (4.8-10.8) 04/30/21 21:46 RBC 5.16 M/uL (4.7-6.1) 04/30/21 21:46 Hgb 17.3 g/dL (14.0-18.0) 04/30/21 21:46 Hct 50.8 % (42-52) 04/30/21 21:46 MCV 98.4 fL (80-100) 04/30/21 21:46 MCH 33.5 pg (25-34) 04/30/21 21:46 MCHC 34.1 g/dL (32-36) 04/30/21 21:46 RDW Std Deviation 50.9 fL (36.4-46.3) H 04/30/21 21:46 RDW Coeff of Katherine 14.1 % (11.5-14.5) 04/30/21 21:46 Plt Count 235 K/uL (130-400) 04/30/21 21:46 MPV 10.1 fL (7.4-10.4) 04/30/21 21:46 Immature Gran % (Auto) 0.2 % 04/30/21 21:46 Neut % (Auto) 66.9 % 04/30/21 21:46 Lymph % (Auto) 17.8 % 04/30/21 21:46 [place] % (Auto) 11.7 % 04/30/21 21:46 Eos % (Auto) 2.7 % 04/30/21 21:46 Baso % (Auto) 0.7 % 04/30/21 21:46 Neut # (Auto) 6.82 K/uL (1.4-6.5) H 04/30/21 21:46 Lymph # (Auto) 1.82 K/uL (1.2-3.4) 04/30/21 21:46 [place] # (Auto) 1.19 K/uL (0.11-0.59) H 09/09/21 21:46 Eos # (Auto) 0.28 K/uL (0-0.5) 04/30/21 21:46 Baso # (Auto) 0.07 K/uL (0-0.2) 04/30/21 21:46 Immature Gran # (Auto) 0.02 K/uL (0.00-0.02) 04/30/21 21:46 PT 9.7 Seconds (9.0-12.0) 04/30/21 22:12 INR 1.0 (0.9-1.1) 04/30/21 22:12 APTT 27.3 Seconds (21.0-31.0) 04/30/21 22:12 PTT Ratio 1.0 04/30/21 22:12 Activ Coag Time Kaolin 274 SECONDS (94-140) H 04/30/21 23:52 Sodium 135 mmol/L (136-145) L 04/30/21 21:46 Potassium 4.1 mmol/L (3.5-5.1) 04/30/21 22:12 Chloride 106 mmol/L (98-107) 04/30/21 21:46 Carbon Dioxide 24 mmol/L (21-32) 04/30/21 21:46 Anion Gap 6.0 (3-11) 04/30/21 21:46 BUN 15 mg/dl (7-18) 04/30/21 21:46 Creatinine 1.36 mg/dl (0.6-1.4) 04/30/21 21:46 Est Cr Clr Drug Dosing 83.2 ml/min 04/30/21 21:46 Est GFR ( Amer) 63.3 ml/min 04/30/21 21:46 Est GFR (Non-Af Amer) 54.6 ml/min 04/30/21 21:46 BUN/Creatinine Ratio 11.1 (10-20) 04/30/21 21:46 Glucose 112 mg/dl (70-99) H 04/30/21 21:46 Calcium 8.8 mg/dl (8.5-10.1) 04/30/21 21:46 Magnesium 1.8 mg/dl (1.8-2.4) 04/30/21 22:12 Total Bilirubin 0.5 mg/dl (0.2-1) 04/30/21 21:46 AST 30 U/L (15-37) 04/30/21 22:12 ALT 38 U/L (12-78) 04/30/21 21:46 Alkaline Phosphatase 110 U/L (45-117) 04/30/21 21:46 Troponin I 0.512 ng/ml (0-0.045) H* 04/30/21 21:46 Total Protein 8.0 gm/dl (6.4-8.2) 04/30/21 21:46 Albumin 3.6 gm/dl (3.4-5.0) 04/30/21 21:46 Globulin 4.4 gm/dl (2.5-4.0) H 04/30/21 21:46 Albumin/Globulin Ratio 0.8 (0.9-2) L 04/30/21 21:46 Lipase 140 U/L (73-393) 04/30/21 21:46 TSH 2.160 uIu/ml (0.300-4.500) 04/30/21 21:46 Specimen Hemolysis 04/30/21 22:12 COVID-19 Eval Order Covid19 at [facility] 04/30/21 Unknown SARS-CoV-2 (PCR) NEGATIVE (Negative) 04/30/21 Unknown Code Status & VTE Plan VTE Prophylaxis Plan VTE Prophylaxis will be ordered: Yes PG Care Time/CCT Total # of Minutes Spent Total Time Spent with Patient: Total time spent is greater than 50% in coordination of care (as documented) at patient's floor/unit and/or counseling patient: Coding Level of Care Code 42158 Initial Inpt Care Lvl 3 Diagnoses Acute [place] I21.9 Involved coronary artery: unspecified coronary artery Myocardial infarction type: unspecified Tobacco abuse Z72.0 (1) Acute [place] Involved coronary artery: unspecified coronary artery Myocardial infarction type: unspecified Qualified Code(s): I21.9 - Acute myocardial infarction, unspecified
[2021-05-01] MEDS: MAGNESIUM SULFATE / D5W 1 GM/100 ML BAG IV SCH ×2 (02:01→03:41)
[2021-05-01 05:08] LABS: Basophils # (auto) 0.05 K/uL (0-0.2); Basophils % (auto) 0.5 %; Eosinophils # (auto) 0.22 K/uL (0-0.5); Eosinophils % (auto) 2.2 %; Hematocrit (blood only) 41.7 % (42-52); Hemoglobin 14.5 g/dL (14.0-18.0); Immature Granulocytes # (auto) 0.02 K/uL (0.00-0.02); Immature Granulocytes % (auto) 0.2 %; Lymphocytes # (auto) 2.48 K/uL (1.2-3.4); Lymphocytes % (auto) 25.3 %; Mean Corpuscular Hemoglobin 34.4 pg (25-34); Mean Corpuscular Hgb Conc 34.8 g/dL (32-36); Mean Corpuscular Volume 98.8 fL (80-100); Mean Platelet Volume 9.7 fL (7.4-10.4); Monocytes # (auto) 1.03 K/uL (0.11-0.59); Monocytes % (auto) 10.5 %; Neutrophils # (auto) 6.01 K/uL (1.4-6.5); Neutrophils % (auto) 61.3 %; Platelet Count 202 K/uL (130-400); RDW Coefficient of Variation 14.2 % (11.5-14.5); RDW Standard Deviation 51.2 fL (36.4-46.3); Red Blood Count 4.22 M/uL (4.7-6.1); White Blood Count 9.81 K/uL (4.8-10.8)
[2021-05-01 06:01] LABS: Chol HDL Ratio 5; Cholesterol 164 mg/dl (0-200); HDL Cholesterol 35 mg/dl; LDL Cholesterol Direct 111 mg/dl; Magnesium 2.4 mg/dl (1.8-2.4); Phosphorus 3.3 mg/dl (2.5-4.9); Triglycerides 185 mg/dl (0-150); VLDL Cholesterol 37 mg/dl
[2021-05-01 07:01] LABS: BUN Creatinine Ratio 13.4 (10-20); Calcium 8.1 mg/dl (8.5-10.1); Creatinine Clr Calc Pharmacy 97.3 ml/min; Est GFR (African American) 77.5 ml/min; Est GFR (Non-African American) 66.9 ml/min
--- NOTE | 2021-05-01 07:10 | XRay Report ---
XR chest 1V portable CLINICAL HISTORY: Chest Pain COMPARISON STUDY: No previous studies for comparison. FINDINGS: No pneumothorax. No pleural effusion. No large infiltrates or consolidative lesions are seen. There is diffuse reticular prominence of pulm onary interstitium. Mild peribronchial cuffing is seen. Cardiomediastinal silhouette is within normal limits in size. Pulmonary vasculature is indistinct.. Aorta is tortuous. Osseous structures: Degenerative changes of the spine. IMPRESSION: 1. No large infiltrates or consolidative lesions. 2. Possible pulmonary edema. ACT 112: Negative or not required by law. The above report was generated using voice recognition software. It may contain grammatical, syntax o r spelling errors. Electronically signed by: Miley Junior DO 05/01/2021 7:09 AM
[2021-05-01 07:48] LABS: Estimated Average Glucose 105 mg/dl; Hemoglobin A1C 5.3 % (4.5-5.6)
[2021-05-01] MEDS: ATORVASTATIN 40 MG TAB PO SCH (08:02)
[2021-05-01] MEDS: NYSTATIN CR 15 GM TUBE EXT SCH ×2 (08:02→20:41)
[2021-05-01] MEDS: PANTOprazole 40 MG TAB PO SCH (08:02)
[2021-05-01] MEDS: METOPROLOL TARTRATE 25 MG TAB PO SCH ×2 (08:02→20:37)
[2021-05-01] MEDS: ASPIRIN 81 MG ECTAB PO SCH (08:02)
[2021-05-01] MEDS: lisinopril 5 MG TAB PO SCH (08:02)
[2021-05-01] MEDS ORDERED: HEPARIN (PORCINE) 1000 UNIT/ML 10 ML (CATH LAB USE ONLY) ONE (10:53)
[2021-05-01] MEDS ORDERED: niCARdipine HCL INJ 2.5 MG/ML 10 ML AMP ONE (10:53)
[2021-05-01] MEDS ORDERED: fentaNYL citrate 100 MCG/2 ML VIAL ONE (10:53)
[2021-05-01] MEDS ORDERED: NITROGLYCERIN/D5W 100MCG/ML 20ML SYR ONE (10:54)
--- NOTE | 2021-05-01 11:55 | XCELERA ---
[id number]
[2021-05-01] MEDS: TICAGRELOR 90 MG TAB PO SCH (12:05)
--- NOTE | 2021-05-01 12:08 | Post Anesthesia Assessment ---
Date of Service May 01, 2021 Post Sedation Assessment Vital Signs Temp Pulse Pulse Resp BP BP Pulse Ox 05/01/21 10:28 98.8 F 66 20 115/78 98 05/01/21 10:02 68 18 107/83 97 05/01/21 09:02 70 14 116/76 99 05/01/21 08:02 98.1 F 78 18 125/78 98 05/01/21 07:09 67 12 120/72 97 05/01/21 06:39 67 13 120/76 97 05/01/21 06:24 66 13 133/93 98 05/01/21 06:09 72 15 122/77 98 05/01/21 05:54 69 14 123/87 98 05/01/21 05:39 69 14 115/78 96 05/01/21 05:24 72 13 120/78 97 05/01/21 05:09 70 13 114/77 96 05/01/21 04:54 68 13 94/80 L 97 05/01/21 04:39 72 14 95/64 L 96 05/01/21 04:24 72 15 107/68 96 05/01/21 04:11 97.7 F 05/01/21 04:09 69 20 107/70 97 05/01/21 03:54 75 15 119/71 97 05/01/21 03:40 77 17 101/66 97 05/01/21 03:24 71 16 98/72 L 97 05/01/21 03:09 69 15 108/72 94 05/01/21 02:54 69 14 108/71 95 05/01/21 02:30 68 13 99/61 L 97 05/01/21 02:25 68 12 96 05/01/21 02:09 69 17 100/64 96 05/01/21 01:56 90/60 L 05/01/21 01:54 105 H 19 74/55 L 95 05/01/21 01:40 66 16 89/55 L 96 05/01/21 01:25 66 15 102/63 99 05/01/21 01:10 68 18 118/68 96 05/01/21 00:56 97.9 F 70 16 113/71 95 05/01/21 00:54 68 16 92/68 L 97 05/01/21 00:46 67 17 113/71 97 05/01/21 00:35 75 04/30/21 23:02 77 136/60 96 04/30/21 22:45 75 169/92 H 95 04/30/21 22:31 75 154/91 H 96 04/30/21 22:16 77 138/91 96 04/30/21 21:55 73 159/93 H 98 04/30/21 21:54 82 190/112 H 04/30/21 21:31 77 190/112 H 04/30/21 21:13 97.0 F L 98 H 18 182/119 H 98 Recovery Score Activity: Moves 4 extremities Respiration: Deep Breath/Cough Circulation: +/-20% PreAnes Value Consciousness: Fully Awake Oxygen Saturation: O2 needed for >90% Discharge Sedation Level of Care: Fast Track Phase II Post Sedation Plan On clinical assessment, the patient appears to have tolerated the sedation without complications. Patient is recovering as anticipated. Patient will continue to be monitored by nursing and may be discharged when sedation discharge criteria are met per below protocol. Upon Completions of procedure up to 15 minutes continue every 5 minute vital sig ns and the P.A.R. score; then discharge to a Phase I or Fast Track to Phase II per the following guidelines: * Discharge Patient to appropriate Phase II area if PAR is 8 or greater or return to pre- procedure baseline. The post - procedure orders will be as directed. * If PAR score is less than 8 or not return to pre-procedure baseline then patient will follow Phase I monitoring till PAR is reached for Phase II. The Phase I may be done in procedure room or may call to secure a Phase I area. * If naloxone or flumazenil are used for reversal, hold in Phase I for continued monitoring from when last reversal dose was given for a minimum of 60 minutes or longer pending the nurse and/or physician discretion of patient condition before discharge to Phase II. Please call the Sedation Physician to re-evaluate and complete post-note for discharge to Phase II area. Do NOT discharge from procedure sedation or Phase 1 until post- sedation evaluation note is complete by procedure /sedation MD Sedation Discharge Instructions to be given to the patient at discharge to home.
--- NOTE | 2021-05-01 12:08 | Pre Anesthesia Assessment ---
Date of Service May 01, 2021 Pre Sedation Assessment Vital Signs Temp Pulse Pulse Resp BP BP Pulse Ox 05/01/21 10:28 98.8 F 66 20 115/78 98 05/01/21 10:02 68 18 107/83 97 05/01/21 09:02 70 14 116/76 99 05/01/21 08:02 98.1 F 78 18 125/78 98 05/01/21 07:09 67 12 120/72 97 05/01/21 06:39 67 13 120/76 97 05/01/21 06:24 66 13 133/93 98 05/01/21 06:09 72 15 122/77 98 05/01/21 05:54 69 14 123/87 98 05/01/21 05:39 69 14 115/78 96 05/01/21 05:24 72 13 120/78 97 05/01/21 05:09 70 13 114/77 96 05/01/21 04:54 68 13 94/80 L 97 05/01/21 04:39 72 14 95/64 L 96 05/01/21 04:24 72 15 107/68 96 05/01/21 04:11 97.7 F 05/01/21 04:09 69 20 107/70 97 05/01/21 03:54 75 15 119/71 97 05/01/21 03:40 77 17 101/66 97 05/01/21 03:24 71 16 98/72 L 97 05/01/21 03:09 69 15 108/72 94 05/01/21 02:54 69 14 108/71 95 05/01/21 02:30 68 13 99/61 L 97 05/01/21 02:25 68 12 96 05/01/21 02:09 69 17 100/64 96 05/01/21 01:56 90/60 L 05/01/21 01:54 105 H 19 74/55 L 95 05/01/21 01:40 66 16 89/55 L 96 05/01/21 01:25 66 15 102/63 99 05/01/21 01:10 68 18 118/68 96 05/01/21 00:56 97.9 F 70 16 113/71 95 05/01/21 00:54 68 16 92/68 L 97 05/01/21 00:46 67 17 113/71 97 05/01/21 00:35 75 04/30/21 23:02 77 136/60 96 04/30/21 22:45 75 169/92 H 95 04/30/21 22:31 75 154/91 H 96 04/30/21 22:16 77 138/91 96 04/30/21 21:55 73 159/93 H 98 04/30/21 21:54 82 190/112 H 04/30/21 21:31 77 190/112 H 04/30/21 21:13 97.0 F L 98 H 18 182/119 H 98 Cardiovascular RRR, no murmur, no edema Respiratory normal respiratory effort, lungs clear to auscultation Pre-Sedation Airway Assessment Smoking Status: Current every day smoker Hx Sleep Apnea: No Hx Difficult Intubation: No Short, Thick Neck: Yes Thyromental Distance: > or= 3.5 Finger Breadths Oral Cavity: + WNL Mallampati Class: III ASA: ASA3 NPO Status Date of Last Intake of Fluids: 05/01/21 Time of Last Intake of Fluids: 06:00 Date of Last Intake of Solid Food: 04/30/21 Time of Last Intake of Solid Foods: 18:00 Procedure Planning Contraindications for Sedation: none Current Medications Reviewed: Yes Notes The planned sedation has been discussed with the patient. Informed Consent was obtained. I have identified the patient, determined the appropriateness of sedation and have assessed the patient immediately prior to the procedure. All medicine(s) and interventions are by my order.
--- NOTE | 2021-05-01 12:14 | Cardiac Catheterization ---
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 Cardiac Status Clinical evaluation leading to the procedure CAD Presenation: Non STEMI Anginal Classification: CCS IV Heart Failure: No Cardiogenic Shock within 24 Hours: No Cardiac Arrest within 24 Hours: No Imaging Studies Past 6 Months: Yes Stress Studies Past 6 Months: No Diagnostic Physicians Name: Lucio Ryan MD Status: Elective Closure Device Percutaneous Entry Location: Radial Closure Device: Radial Band Recommendations: PCI without planned CABG PCI Indication: Staged PCI Lesion Segment Name: mid RCA Culprit Artery: Yes Stenosis Prior to Rx (%): 80 Chronic Total Occlusion: No IVUS: Yes FFR: No Pre-Procedure ANAHI Flow: 3 Previously Treated Lesion: No Lesion Complexity: Non-High/Non-C Lesion Length (mm): 8 Thrombus Present: No Bifurcation Lesion: No Guidewire Across Lesion: Stenosis Post-Procedure (%): 0 Post-Procedure ANAHI Flow: 3 Devices(s) Deployed: Yes Yes Intraprocedure Events Significant Disection: No Perforation: No Cardiac Cath Procedure Full Procedure Date May 01, 2021 Pre-Procedure Diagnosis Pre-Procedure Diagnosis: Non STEMI AUC Score AUC Score: 7 Post-Procedure Diagnosis Post-Procedure Diagnosis: Severe CAD and Successful PCI Procedure(s) Performed Procedure(s) Performed: Coronary Angiography, Drug Eluting Stent and IVUS Ribbon Inker Lucio Ryan MD Property And Equipment Clerk(s) Butter Fat Tester Estimated Blood Loss Estimated Blood Loss: 15 Medication(s) Medication(s): Fentanyl, Heparin, Lidocaine 1%, Nicardipine, Nitroglycerin and Versed Medication(s): Ticagrelor Summary of Findings Indication: Staged PCI of mid RCA. Post PCI to acutely occluded mid LAD yesterday. Access: 6 Fr right radial artery Catheters: JR4 guide, telescope support catheter Findings: For full details of patient's angiography please see cath report from earlier 05/01/2021. RCAagain noted to have a severe focal 80% earlymid RCA lesion in large dominant RCA. -- PCI -- Antithrombotic therapy: Heparin, ticagrelor Procedure: RCA cannulated with JR4 guide Nursing [facility] Tutor 50 wire passed across lesion into distal vessel Dora IVUS catheter placed into latemid RCA across stenosis with a very telescope support catheter. Pullback revealed very focal minimally calcified stenosis in mid segment. No significant proximal disease. Mid RCA stented with 4.0 x 12 mm [place] drug-eluting stent Stent post-dilated with 5.0 noncompliant balloon IC vasodilators administered for spasm Post procedure ANAHI 3 flow, stent well expanded with minimal residual stenosis and no apparent cardiac complications. Arterial Closure: TR band Summary: 1. Successful staged PCI of mid RCA with single drug-eluting stent (4.0 x 12 mm [place]; postdilated with 5.0 NC) Recommendations: Return to PCU for continued monitoring Continue dual-antiplatelet therapy with aspirin, ticagrelor Hemodynamics Rest Ao:: / Final Ao: / LV: -- Recommendations Recommendations: PCI without planned CABG Specimens Specimens: None Radiation Exposure (mGy) 1979 Contrast (mls) 50 Fluids (cc crystalloids) Fluids (cc crystalloids): 245 Drains Drains: None Anesthesia Moderate 6055-9036 Procedural Complication(s) None Disposition PCU I attest to the content of the Intraoperative Record and any orders documented therein. Any exceptions are noted below. [facility] Card Cath Procedure Codes Therapeutic Services & Ancillary Proc Procedure 1: Cardiovascular Tx and Anc Procedures: 11623 IV Ultrasound (Coronary or Graft) Moderate Sedation Procedure 1: Sedation/Anesthesia: 26723 Mod Sedation by the same physician;Init15 Min Child Age 5 & Up Procedure 2: Sedation/Anesthesia: 91348 Mod Sedation by the same physician; Ea [id number] Minutes Stenting Procedure 1: Cardiovascular Stent Procedures: 91534 Perc transcatheter placement of intracoronary stent(s), with ang PG Care Time/CCT Total # of Minutes Spent Total Time Spent with Patient: Total time spent is greater than 50% in coord ination of care (as documented) at patient's floor/unit and/or counseling patient:
--- NOTE | 2021-05-01 15:30 | Electrocardiogram Report ---
Test Reason : Blood Pressure : / mmHG Vent. Rate : 087 BPM Atrial Rate : 087 BPM P-R Int : 156 ms QRS Dur : 128 ms QT Int : 388 ms P-R-T Axes : 071 -40 025 degrees QTc Int : 466 ms Normal sinus rhythm Left axis deviation Right bundle branch block Abnormal ECG When compared with ECG of 30-APR-2021 21:20, (unconfirmed) Premature atrial complexes are no longer Present Confirmed by Lucio Kelly ([id number]) on 05/01/2021 3:30:31 PM Referred By: REFERRED SELF Confirmed By:Cody Kelly
--- NOTE | 2021-05-01 15:31 | Electrocardiogram Report ---
Test Reason : Blood Pressure : / mmHG Vent. Rate : 070 BPM Atrial Rate : 070 BPM P-R Int : 162 ms QRS Dur : 126 ms QT Int : 412 ms P-R-T Axes : 068 -39 022 degrees QTc Int : 444 ms Normal sinus rhythm Left axis deviation Right bundle branch block Abnormal ECG When compared with ECG of 30-APR-2021 21:21, (unconfirmed) ST no longer elevated in Anterior leads Confirmed by Lucio Kelly ([id number]) on 05/01/2021 3:31:31 PM Referred By: REFERRED SELF Confirmed By:Cody Kelly
--- NOTE | 2021-05-01 15:34 | Electrocardiogram Report ---
Test Reason : Blood Pressure : / mmHG Vent. Rate : 068 BPM Atrial Rate : 068 BPM P-R Int : 160 ms QRS Dur : 122 ms QT Int : 420 ms P-R-T Axes : 092 -43 052 degrees QTc Int : 446 ms Normal sinus rhythm Left axis deviation Right bundle branch block Abnormal ECG When compared with ECG of 30-APR-2021 21:57, (unconfirmed) No significant change was found Confirmed by Lucio Kelly ([id number]) on 05/01/2021 3:33:45 PM Referred By: REFERRED SELF Confirmed By:Cody Kelly
--- NOTE | 2021-05-01 18:03 | Cardiology Progress Note ---
Date of Service May 01, 2021 Assessment & Plan (1) ACS (acute coronary syndrome): Plan: Post PCI to acutely occluded mid LAD Now post staged PCI to mid RCA 2. 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 Hypertension 4. Dyslipidemia 5. Tobacco abuse Has remained chest pain-free. Hemodynamically electrically stable. Well-perfused without congestion on exam No access site complications. Continue DAPT with aspirin, ticagrelor Continue current metoprolol, lisinopril. Discharged on Toprol-XL Continue current statin From a cardiac standpoint okay with transition to telemetry today and likely discharge tomorrow. Follow-up cardiology in [place] in 1 to 2 weeks. Admission and Anticipated Discharge Date Admission Date: May 01, 2021 Subjective Doing well post staged PCI to RCA. No recurrent chest pain. No other new issues. Review of Systems Review of Systems: All systems reviewed & are unremarkable except as noted in HPI & below Physical Exam Physical Exam: General: Comfortable HEENT: Sclerae anicteric, Mask in place Lungs: Clear to auscultation bilaterally, no crackles or wheezes Cardiac: Regular rate and rhythm, no murmurs. Vascular: Right radial artery access site with no ecchymosis, hematoma. Distal pulse and sensation intact. Abdomen: Soft, nontender Extremities: Well perfused, no peripheral edema Neuro: Nonfocal Psych: Alert orient x3, normal affect and mood Results & Data ([facility]) Vital Signs (Past 12 Hours) Vital Signs Temp Pulse Pulse Resp BP BP Pulse Ox 05/01/21 16:57 73 17 145/83 H 99 05/01/21 15:58 67 05/01/21 15:46 97.9 F 74 14 106/64 95 05/01/21 15:32 68 15 105/55 L 97 05/01/21 15:16 66 16 115/72 98 05/01/21 15:01 80 21 111/60 96 05/01/21 14:46 63 16 97/60 L 98 05/01/21 14:31 62 14 94/54 L 95 05/01/21 14:02 67 17 120/52 L 98 05/01/21 13:47 70 15 123/76 98 05/01/21 13:31 74 20 116/73 100 05/01/21 13:17 72 18 110/76 98 05/01/21 13:01 69 22 117/69 98 05/01/21 12:45 98.2 F 67 15 117/73 96 05/01/21 12:30 69 18 110/61 97 05/01/21 12:15 70 18 106/77 95 05/01/21 10:28 98.8 F 66 20 115/78 98 05/01/21 10:02 68 18 107/83 97 05/01/21 09:02 70 14 116/76 99 05/01/21 08:02 98.1 F 78 18 125/78 98 05/01/21 07:09 67 12 120/72 97 05/01/21 06:39 67 13 120/76 97 05/01/21 06:24 66 13 133/93 98 05/01/21 06:09 72 15 122/77 98 PG Care Time/CCT Total # of Minutes Spent Total Time Spent with Patient: Total time spent is greater than 50% in coordination of care (as documented) at patient's floor/unit and/or counseling patient: Coding Level of Care Code 72177 Subseq Hosp Care Lvl 3 Diagnoses ACS (acute coronary syndrome) I24.9
--- NOTE | 2021-05-01 18:04 | Electrocardiogram Report ---
Test Reason : Blood Pressure : / mmHG Vent. Rate : 071 BPM Atrial Rate : 071 BPM P-R Int : 158 ms QRS Dur : 126 ms QT Int : 422 ms P-R-T Axes : 078 -30 025 degrees QTc Int : 458 ms Normal sinus rhythm Left axis deviation Right bundle branch block Abnormal ECG When compared with ECG of 01-MAY-2021 00:44, (unconfirmed) No significant change was found Confirmed by Lucio Kelly ([id number]) on 05/01/2021 6:04:18 PM Referred By: REFERRED SELF Confirmed By:Cody Kelly
[2021-05-02] MEDS: TICAGRELOR 90 MG TAB PO SCH ×2 (00:25→11:03)
[2021-05-02 05:51] LABS: BUN Creatinine Ratio 11.8 (10-20); Calcium 8.1 mg/dl (8.5-10.1); Creatinine Clr Calc Pharmacy 110.8 ml/min; Est GFR (African American) 90.7 ml/min; Est GFR (Non-African American) 78.2 ml/min; Potassium 4.1 mmol/L (3.5-5.1)
[2021-05-02] MEDS: PANTOprazole 40 MG TAB PO SCH (09:49)
[2021-05-02] MEDS: ASPIRIN 81 MG ECTAB PO SCH (09:49)
[2021-05-02] MEDS: METOPROLOL TARTRATE 25 MG TAB PO SCH (09:49)
[2021-05-02] MEDS: ATORVASTATIN 40 MG TAB PO SCH (09:50)
[2021-05-02] MEDS: NYSTATIN CR 15 GM TUBE EXT SCH (09:50)
[2021-05-02] MEDS: lisinopril 5 MG TAB PO SCH (09:50)
--- NOTE | 2021-05-02 11:35 | Cardiology Progress Note ---
Date of Service May 02, 2021 Assessment & Plan (1) ACS (acute coronary syndrome): Plan: Post PCI to acutely occluded mid LAD Post staged PCI to mid RCA 2. 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 Hypertension 4. Dyslipidemia 5. Tobacco abuse From a cardiac standpoint OK with discharge today. Home on DAPT with aspirin, ticagrelor, Toprol-XL and current lisinopril, statin. Follow-up cardiology in [place] in 2 weeks. Admission and Anticipated Discharge Date Admission Date: May 01, 2021 Subjective No recurrent chest pain. No other new issues. Ready to go home Review of Systems Review of Systems: All systems reviewed & are unremarkable except as noted in HPI & below Physical Exam Physical Exam: General: Comfortable Lungs: Clear to auscultation bilaterally, no crackles or wheezes Cardiac: Regular rate and rhythm, no murmurs. Vascular: Right radial artery access site with no ecchymosis, hematoma. Distal pulse and sensation intact. Abdomen: Soft, nontender Extremities: Well perfused, no peripheral edema Neuro: Nonfocal Psych: Alert orient x3, normal affect and mood Results & Data ([facility]) Vital Signs (Past 12 Hours) Vital Signs Temp Pulse Pulse Resp BP BP Pulse Ox 05/02/21 11:14 98.1 F 69 12 110/61 96 05/02/21 11:12 98.1 F 69 12 110/61 96 05/02/21 07:37 98.1 F 68 12 110/66 96 05/02/21 03:56 98.1 F 60 11 L 87/41 L 95 05/02/21 02:56 68 18 117/71 94 05/02/21 01:56 74 12 106/69 96 05/02/21 00:56 98.1 F 74 14 90/64 L 97 05/02/21 00:00 65 05/01/21 23:56 68 16 92/56 L 96 PG Care Time/CCT Total # of Minutes Spent Total Time Spent with Patient: Total time spent is greater than 50% in coordination of care (as documented) at patient's floor/unit and/or counseling patient: Coding Level of Care Code 32213 Subseq Hosp Care Lvl 2 Diagnoses ACS (acute coronary syndrome) I24.9
--- NOTE | 2021-05-03 07:56 | Discharge Summary ---
Date of Service May 02, 2021 Admission HPI Per Admitting Provider Aj Dodson is a 65yo male presenting with chest pain and jaw tightness that began around 16:00. Pain worsened throughout the day which prompted patient to come to the ER. EKG with RBBB and ST changes/mild elevation present in anterior leads. His troponin was positive at 0.512. Code Heart was called and the patient was taken for cardiac catheterization. Procedure was well tolerated. He was found to have 100% occlusion of the mid-LAD as well as 80--90% occlusion of the mid RCA. A single KATELYN was placed to mid-LAD culprit lesion. Patient was transferred to the MICU for ongoing care. Presently with no complaints. Still with mild tightness in his jaw/chin area. No additional complaints at this time. Principal Diagnosis Acute CO Discharge Exam General: patient resting comfortably, NAD, non-toxic in appearance, AA&O x 4 Skin: warm, dry, intact, no rashes or lesions HEENT: NC/AT, PERRL, EOMI, anicteric sclera, conjunctiva without injection, external ear normal to inspection and nontender, nares patent, moist mucus membranes, dentition intact, no oropharyngeal lesions, neck supple, trachea midline, no LAD, no thyromegaly, no JVD Heart: +S1/S2, regular, no m/r/g Lungs: equal air entry bilaterally, no rales/rhonchi, scattered end expiratory wheezing Abd: +BS, soft, NT/ND, no masses/organomegaly/ascites Ext: warm, 2+ pulses in UE/LE bilaterally, no clubbing/cyanosis or edema, left radial occlusion band Neuro: nonfocal, patient AA&O x 4, speech intact, no facial droop, moving all extremities on command with equal strength 5/5 Discharge Data Allergies Allergy/AdvReac Type Severity Reaction Status Date / Time Penicillins Allergy Intermediate Hives Verified 04/30/21 22:45 POLLEN Allergy Intermediate SNEEZING, Uncoded 04/30/21 22:45 CONGESTION Consultations 04/30/21 23:01 ED Decision to Admit Stat 05/01/21 00:32 Consult Cardiac Rehabilitation Routine Consult School Bus Dispatcher Routine Procedures Performed Operation Date: 04/30/21 23:00 Actual Procedures p Cineradiography w/Routine Exam - Tyrone Ryan MD s Cath, Left with Cors and Vent - Tyrone Ryan MD s Aspiration/PCI w/KATELYN for Stemi - MD theron Cota IVUS Coronary Single Vessel - Tyrone Ryan MD Operation Date: 05/01/21 11:00 Actual Procedures p Cineradiography w/Routine Exam - MD theron Chaney IVUS Coronary Single Vessel - Tyrone Ryan MD s Drug Eluting Stent SGl Vessel - Tyrone Ryan MD Ordered Studies 04/30/21 23:01 CL Cath Imgs for PACS use only Stat 05/01/21 06:36 CL Cath Imgs for PACS use only Stat 05/01/21 07:20 CL IVUS Coronary Single Vessel Routine Hospital Course (1) Acute CO: 65yo C male presenting with acute anterior STEMI s/p cardiac catheterization with placement of KATELYN x 1 to mid-LAD. Patient doing well. He is to return to the [facility] [employer] [facility] tomorrow for stenting of RCA lesion -Admit to MICU -Keep NPO after midnight for [employer] in AM -Trend troponin q 8 hour x 3 -Check Lipid panel and HgbA1C for risk assessment -Continue ASA 81mg po daily -Continue Atorvastatin 80mg po daily -Continue Lisinopril 5mg po daily -Continue Metoprolol tartrate 25mg po BID for now -Continue Brilinta 90mg po BID On discharge: -Continue DAPT with aspirin, ticagrelor Continue current metoprolol, lisinopril. Discharged on Toprol-XL Continue current statin Cardio agrees with discharge. (2) Tobacco abuse: Patient reports smoking 3/4 ppd -Smoking cessation counseling Total Time Total Time Spent Total Time Spent (In Minutes): 32 Discharge Plan Discharge Items Patient Disposition: Home - Self-Care Reason For Visit: NSTEMI Discharge Diagnosis: NSTEMI Condition on Discharge: Fair Activity: Resume your previous activity Non-emergency contact: Primary Care Provider Call non-emergency contact if: you have any medication questions Follow-up/Referrals: PCP,NO [Physician] - Diet: Heart Healthy Addtl Attending Provider Instructions: Home Care: * Take your medications exactly as directed. Don't skip doses. * Remember that recovery after a heart attack takes time. Plan to rest for at lease 4-8 weeks while you recover. Then return to normal activity when your doctor says it's okay. * Ask your doctor about joining a heart rehabilitation program. * Tell your doctor if you are feeling depressed. Feelings of sadness are common after a heart attack, but it is important that you speak to someone if you are feeling overwhelmed by these feelings. * If you are having chest pain, call 911 for an ambulance. Do NOT drive yourself to the hospital. * Ask your family members to learn CPR. * Learn to take your own blood pressure and pulse. Keep a record of your results. Ask your doctor when you should seek emergency medical attention. He or she will tell you which blood pressure reading is dangerous. Lifestyle Changes: * Maintain a healthy weight. Get help to lose any extra pounds. * Cut back on salt. * Limit canned, dried, packaged, and fast foods. * Don't add salt to your food. * Season foods with herbs instead of salt when you cook. * Break the smoking habit. Enroll in a stop-smoking program to improve your chances of success. * Limit fatty foods. * Ask your doctor about having your lipid levels checked regularly. * Build up your activity according to your doctor's recommendation. * Ask your doctor when it's okay to resume sexual activity. * Tell your doctor about any erectile dysfunction (ED) medication you are taking. Some ED medications are not safe if you take certain heart medications. * Try to manage stress. Follow Up: It is important for you to keep your follow up appointments with your medical provider. Pending Studies at Discharge: No Stand-Alone Forms: My [facility], Smoking Cessation Medications and DC Order Prescriptions: New atorvastatin 40 mg Tablet 80 mg PO QAM Qty: 60 RF: 0 pantoprazole 40 mg Tablet,Delayed Release (Dr/Ec) 40 mg PO QAM Qty: 30 RF: 0 lisinopril [Zestril] 5 mg Tablet 5 mg PO QAM Qty: 30 RF: 0 Brilinta 90 mg Tablet 90 mg PO Q12H Qty: 60 RF: 0 metoprolol succinate 50 mg tablet extended release 24 hr 50 mg PO PM Qty: 30 RF: 0 Continued aspirin 81 mg Tablet,Delayed Release (Dr/Ec) 81 mg PO DAILY RF: 0 ascorbic acid (vitamin C) [Vitamin C] 500 mg Tablet 500 mg PO DAILY RF: 0 Discontinued diphenhydramine HCl [Allergy Medicine] 25 mg Capsule 0 mg PO DAILY RF: 0 omeprazole 20 mg Capsule,Delayed Release(Dr/Ec) 20 mg PO DAILY RF: 0 Discharge Orders: Discharge Order (Routine); Ordered 05/02/21 Ordered By: Daniel Holloway Admission Data Admit Date/Time: 05/01/21 00:32 Attending Provider: Daniel Holloway Admit Provider: Tyrone Ryan Primary Care Provider: James Silva Other Providers: Sandy Horowitz Brian W Other Interventions: Discharge Summary Assessment (RN) Last Done: 05/02/21 11:14 Coding Level of Care Code D/C DAY MANAGEMENT >30 MINS Diagnoses Acute CO I21.9 Involved coronary artery: unspecified coronary artery Myocardial infarction type: unspecified Tobacco abuse Z72.0
== END 2021-05-02 14:09 | disposition home or self-care (01) | DRG 247 ==
LOC: ED 21:04 → CC 23:27 → 1E 23:27 → INTOOBSV 05-01 00:32 → 1E 05-01 00:32 → SUATTDRO 05-01 00:32
PROC: CLB.CCO (2021-05-01 11:00)